=== PATIENT | female | born 1955 | race Caucasian/White ===

== ENCOUNTER → 2024-05-29 | Outpatient (CLI) | payer MEDICARE, MEDICAID, SELFPAY ==
--- NOTE | 2024-05-29 15:00 | XR_ITS ---
Examination: Pelvic ultrasound, transabdominal, complete Technique: Transabdominal ultrasound of the pelvis performed using grayscale imaging Date and time of exam: May 29, 2024 1455 hours INDICATIONS: Intermittent pelvic pain beginning several years ago FINDINGS: Uterus 7.9 x 3.8 x 4.8 cm Uterine calcifications, no discrete uterine mass Endometrial stripe 0.4 cm Ovaries obscured by bowel gas IMPRESSION: No discrete uterine mass
--- NOTE | 2024-05-29 15:30 | XR_ITS ---
Examination: Retroperitoneal ultrasound, complete Technique: Multiple high resolution grayscale images of the retroperitoneum obtained, including kidneys and bladder. Exam date and time:May 29, 2024 1458 hours INDICATIONS: Bladder infection beginning 2 weeks ago, intermittent pelvic pain years FINDINGS: Right kidney 8.8 x 4.4 x 4.6 cm renal cortex 1.5 cm Left kidney 9.3 x 4.4 x 4.6 cm renal cortex 1.7 cm Mild bilateral renal parenchymal scar formation No hydronephrosis Bladder mass or bladder calculi not depicted Bladder prevoid volume 73 cc IMPRESSION: Bilateral renal cortical thinning Mild bilateral renal parenchymal scar formation No hydronephrosis
== END | disposition home or self-care (01) ==
LOC: CDIM 14:37
PROVIDERS: Referring Provider Nurse Practitioner Family; Visit Provider Nurse Practitioner Family
DX: N28.89 Other specified disorders of kidney and ureter (principal)
CPT/HCPCS: 76770; 76856